=== PATIENT | female | born 2005 | race Caucasian/White ===

== ENCOUNTER 2024-03-18 12:21 | Emergency (ER) | payer OTHER ==
[~2024-03-18] VITALS: Ht 157.5 cm; Wt 74.8 kg
[2024-03-18 12:29] VITALS: O2SAT 98
[2024-03-18] MEDS ORDERED: ACETAMINOPHEN 500MG TABLET PO ONE (15:30)
[2024-03-18] MEDS: CYANOCOBALAMIN 1000MCG/ML VIAL IM ONE (18:30)
[2024-03-18] MEDS: ACETAMINOPHEN 500MG TABLET PO NR (18:31)
[2024-03-18] MEDS ORDERED: ACET-2708 MT (18:39)
[2024-03-18 18:58] VITALS: BP 90/65; PULSE 58; RESP 14; TEMP 36.39180; O2SAT 98
== END 2024-03-18 18:40 | disposition home or self-care (01) ==
LOC: ER 12:21
DX: M54.9 Dorsalgia, unspecified (principal); D64.9 Anemia, unspecified
CPT/HCPCS: 96372; 99283; J3420